=== PATIENT | female | born 1950 | race Caucasian/White ===

== ENCOUNTER 2019-03-31 06:23 | Day surgery (SDC) | payer MEDICARE, OTHER ==
[2019-03-31] MEDS: CYCLOPENTOLATE/PHENYLEPH 2 ML OPH OPER (07:12)
[2019-03-31] MEDS: DICLOFENAC 0.1% 2.5 ML OPH OPER (07:12)
[2019-03-31] MEDS: MOXIFLOXACIN 0.5% 3 ML OPH OPER (07:12)
[2019-03-31] MEDS: TROPICAMIDE 1% 15 ML OPH OPER (07:13)
[2019-03-31] MEDS: SOD CHLORIDE 0.9% 1,000 ML IV (07:14)
[2019-03-31] MEDS ORDERED: PROPOFOL 20 ML (08:05)
[2019-03-31] MEDS ORDERED: FENTAnyl 50 MCG/ML VIAL (08:05)
[2019-03-31] MEDS: CEFAZOLIN 1 GM INJ (08:49)
[2019-03-31] MEDS: CARBACHOL 0.01% 1.5 ML OPH INJ (08:49)
[2019-03-31] MEDS: NA HYALURONATE/CHONDROITIN 0.5 ML SYG (08:50)
[2019-03-31] MEDS: EPINEPHrine 1 MG INJ (08:50)
[2019-03-31] MEDS: LIDOCAINE 4% (MPF) 5 ML INJ (08:50)
[2019-03-31] MEDS: DEXAMETHASONE 4 MG/ML 1 ML INJ (08:50)
[2019-03-31] MEDS: GENTAMICIN 80 MG INJ (08:50)
[2019-03-31] MEDS: TETRACAINE 0.5% 4 ML OPH (08:51)
[2019-03-31] MEDS ORDERED: FENTAnyl 50 MCG/ML VIAL IV ×2 (09:00)
[2019-03-31] MEDS ORDERED: OXYCODONE/ACETAMINOPHEN (5/325) TAB PO (09:00)
[2019-03-31] MEDS: ONDANSETRON 4 MG INJ IV (09:25)
[2019-03-31] MEDS: OXYCODONE/ACETAMINOPHEN (5/325) TAB PO (09:25)
[2019-03-31] MEDS: FENTAnyl 50 MCG/ML VIAL IV (09:37)
== END 2019-03-31 10:50 | disposition home or self-care (01) ==
LOC: SDS 06:23
DX: H25.11 Age-related nuclear cataract, right eye (principal)
CPT/HCPCS: 66984